=== PATIENT | male | born 1980 | race Caucasian/White ===

== ENCOUNTER 2016-11-01 07:36 | Emergency (ER) | payer OTHER ==
[2016-11-01] MEDS ORDERED: DEXAMETHASONE 10 MG/ML VIAL PO STA (08:34)
[2016-11-01] MEDS ORDERED: KETOROLAC 60 MG/2 ML VIAL IM STA (08:34)
[2016-11-01] MEDS ORDERED: CHERRY SYRUP 10 ML UDC PO ONE (08:38)
[2016-11-01] MEDS ORDERED: KETOROLAC 60 MG/2 ML VIAL ONE (08:38)
[2016-11-01] MEDS ORDERED: DEXAMETHASONE 10 MG/ML VIAL ONE (08:38)
== END 2016-11-01 09:02 | disposition home or self-care (01) ==
DX: M10.072 Idiopathic gout, left ankle and foot (principal); F17.200 Nicotine dependence, unspecified, uncomplicated
CPT/HCPCS: 73610; 96372; 99283; A9270

== ENCOUNTER 2023-05-17 10:35 | Emergency (ER) | payer OTHER ==
[2023-05-17 10:58] VITALS: O2SAT 99
--- NOTE | 2023-05-17 11:10 | XRAY Report ---
PROCEDURE: Ankle 3 View LT INDICATIONS: pain/swelling TECHNIQUE: 3 views of the ankle were acquired. COMPARISON: None. FINDINGS: Bones: No fractures or dislocations. Ankle mortise is normally aligned. No suspicious bony lesions . Soft tissues: Moderate tibiotalar joint effusion. Achilles tendon appears normal. IMPRESSION: Moderate tibiotalar effusion, without acute bony abnormality. Reviewed by: Jose Cr on 05/17/2023 11:09 AM PDT Approved by: Jose Cr on 05/17/2023 11:09 AM PDT Station ID: [id number]
--- NOTE | 2023-05-17 12:15 | ED Physician Documentation ---
PD HPI LOWER EXT INJURY - Stated complaint Stated Complaint: LT ANKLE PX/SWELLING - Chief complaint Chief Complaint: Ext Problem - History obtained from History obtained from: Patient - Additional information Additional information: The patient comes to the emergency department with chief complaint of left foot and ankle pain and redness. He states that it feels like his usual gout flares except that has gone on for longer than it normally does. He states that normally, his gout resolves in several days, but has been weak this time. He denies any spreading of the redness. No fevers or chills. He otherwise feels fine. No injury. He states he usually does not take anything other than Tylenol, but that since the symptoms have gone on, he would like to take something more specific to try to resolve the sx. No other complaints at this time. PD PAST MEDICAL HISTORY - Past Medical History Past Medical History: Yes Musculoskeletal: Gout - Past Surgical History Past Surgical History: No - Present Medications Home Medications: Ambulatory Orders Medication Instructions Recorded Confirmed HYDROcod/ACETAM 5/325 [[place] 5/325] 1 - 2 ea PO Q6H PRN #15 tablet 11/01/16 Indomethacin 25 - 50 mg PO Q6HR PRN #30 capsule 11/01/16 Indomethacin [Indocin] 25 mg PO BIDWM #14 cap 05/17/23 predniSONE [Deltasone] 60 mg PO DAILY 5 Days #15 tablet 05/17/23 - Allergies Allergies/Adverse Reactions: Allergies Allergy/AdvReac Type Severity Reaction Status Date / Time No Known Drug Allergies Allergy Verified 02/06/16 14:42 - Social History Does the pt smoke?: Yes Smoking Status: Current every day smoker Does the pt drink ETOH?: Yes Does the pt have substance abuse?: No - Immunizations Immunizations are current?: Yes PD ED PE NORMAL - Vitals Vital signs reviewed: Yes - General General: Alert and oriented X 3, No acute distress, Well developed/nourished - HEENT HEENT: Atraumatic, PERRL, EOMI, Moist mucous membranes - Neck Neck: Supple, no meningeal sign - Cardiac Cardiac: Strong equal pulses - Respiratory Respiratory: No respiratory distress - Derm Derm: Warm and dry, Other (Mild tenderness and focal erythema over the lateral edge of left fifth toe and foot. Minimal edema. No erythema over left lateral ankle but mild edema noted.) - Extremities Extremities: No deformity, Other (Mild edema left lateral ankle. No deformity.) - Neuro Neuro: Alert and oriented X 3, No motor deficit, No sensory deficit - Psych Psych: Normal mood, Normal affect Results - Vitals Vitals: Vital Signs - 24 hr 05/17/23 05/17/23 10:42 12:22 Temperature 36.7 C 36.7 C Heart Rate 70 72 Respiratory 18 18 Rate Blood Pressure 135/96 H 133/88 H O2 Saturation 99 99 Oxygen O2 Source Room air PD Medical Decision Making - ED course Complexity details: considered differential, d/w patient ED course: I discussed with the patient that his symptoms certainly could be due to a flareup of his gout. He has had a negative left foot x-ray series here in the emergency department today. He has had symptoms for a week and has not had any migration of the erythema or the edema and has not developed any fevers, chills, or other symptoms of illness. I will prescribe indomethacin and prednisone for the patient. We have discussed symptomatic management at home and the need for follow-up with podiatry if his symptoms are not noticeably better in a week. Departure - Departure Disposition: 01 Home, Self Care Clinical Impression: Gout Qualifiers: Gout site: foot Gout etiology: unspecified cause Chronicity: acute Laterality: left Qualified Code(s): M10.9 - Gout, unspecified Condition: Stable Instructions: ED Arthritis Gout Follow-Up: Alexander Penaloza DPM [Physician No Access] - Prescriptions: predniSONE [Deltasone] 60 mg PO DAILY 5 Days #15 tablet Indomethacin [Indocin] 25 mg PO BIDWM #14 cap Comments: concerns. Your foot x-ray series looks good. Most likely, you are having a flareup of your gout. Prescriptions for indomethacin and prednisone and been electronically transmitted to [facility] pharmacy in [place]. Please pick these up and begin taking them today to help stop the cycle of inflammation and pain. If you are not feeling better after the next week, please follow-up with podiatry for further evaluation. Forms: PCP List Discharge Date/Time: 05/17/23 12:22
[2023-05-17 12:28] VITALS: BP 133/88
== END 2023-05-17 12:22 | disposition home or self-care (01) ==
LOC: ED 10:35
DX: M10.9 Gout, unspecified (principal); F17.200 Nicotine dependence, unspecified, uncomplicated
CPT/HCPCS: 99283

== ENCOUNTER 2023-10-20 12:27 | Emergency (ER) | payer OTHER ==
[2023-10-20 12:42] VITALS: BP 135/84; O2SAT 98
--- NOTE | 2023-10-20 12:44 | ED Physician Documentation ---
PD HPI SKIN - Stated complaint Stated Complaint: NECK PX - Chief complaint Chief Complaint: Wound - History obtained from History obtained from: Patient - Additional information Additional information: He had to go in his crawl space about a week ago to address a frozen pipe. His neck posteriorly brushed up against fiberglass insulation. It has been itchy ever since. PD PAST MEDICAL HISTORY - Past Medical History Past Medical History: No Cardiovascular: None Respiratory: None Neuro: None Endocrine/Autoimmune: None GI: None : None HEENT: None Psych: None Musculoskeletal: None, Gout Derm: None - Past Surgical History Past Surgical History: No - Present Medications Home Medications: Ambulatory Orders Medication Instructions Recorded Confirmed HYDROcod/ACETAM 5/325 [[place] 5/325] 1 - 2 ea PO Q6H PRN #15 tablet 11/01/16 Indomethacin 25 - 50 mg PO Q6HR PRN #30 capsule 11/01/16 Indomethacin [Indocin] 25 mg PO BIDWM #14 cap 05/17/23 predniSONE [Deltasone] 60 mg PO DAILY 5 Days #15 tablet 05/17/23 Betamethasone Dipropionate 2 gm TP TID #45 gm 10/20/23 - Allergies Allergies/Adverse Reactions: Allergies Allergy/AdvReac Type Severity Reaction Status Date / Time No Known Drug Allergies Allergy Verified 10/20/23 12:31 - Social History Does the pt smoke?: Yes Smoking Status: Current every day smoker Does the pt drink ETOH?: Yes Does the pt have substance abuse?: No - Immunizations Immunizations are current?: Yes PD ED PE NORMAL - Vitals Vital signs reviewed: Yes - General General: Alert and oriented X 3, No acute distress - Neck Neck: Other (Inflamed dermatitis type rash to the lower posterior neck without signs of superinfection.) - Neuro Neuro: Alert and oriented X 3 - Psych Psych: Normal mood, Normal affect Results - Vitals Vitals: Vital Signs - 24 hr 10/20/23 12:31 Temperature 36.8 C Heart Rate 98 Respiratory 16 Rate Blood Pressure 135/84 H O2 Saturation 98 Oxygen O2 Source Room air Departure - Departure Disposition: 01 Home, Self Care Clinical Impression: Dermatitis due to fiberglass Condition: Good Record reviewed to determine appropriate education?: Yes Instructions: ED Dermatitis Contact Prescriptions: Betamethasone Dipropionate 2 gm TP TID #45 gm Comments: I sent your prescription electronically to [facility] in [place]. As discussed this should slowly improve over the next couple of weeks and the steroid cream will help a lot as well. Return if you develop signs of infection, bigger broader red area, fevers or more severe pain as opposed to itching. Forms: PCP List
== END 2023-10-20 12:48 | disposition home or self-care (01) ==
LOC: ED 12:27
DX: T78.49XA Other allergy, initial encounter (principal); X58.XXXA Exposure to other specified factors, initial encounter; M54.2 Cervicalgia; L29.9 Pruritus, unspecified; F17.200 Nicotine dependence, unspecified, uncomplicated
CPT/HCPCS: 99282; 99283